=== PATIENT | male | born 1970 | race Caucasian/White ===

== ENCOUNTER 2017-09-17 19:46 | Emergency (ER) | payer SELFPAY ==
[~2017-09-17] VITALS: Ht 175.3 cm; Wt 85.0 kg
[2017-09-17 19:58] VITALS: BP 146/92; PULSE 108; RESP 16; TEMP 98.7; O2SAT 98
== END 2017-09-17 20:00 | disposition left against medical advice (07) ==
LOC: NEDAMB 19:46
DX: Z03.89 Encounter for observation for other suspected diseases and conditions ruled out (principal)
CPT/HCPCS: 99281